=== PATIENT | female | born 1970 | race American Indian/Alaskan Native ===

== ENCOUNTER 2018-10-01 07:15 | Inpatient (IN) | payer SELFPAY ==
[2018-10-01 07:41] LABS: Basophils # (Auto) 0.1 K/mm3 (0.0-0.1); Basophils % (Auto) 1.3 % (0.0-1.8); Eosinophils # (Auto) 0.2 K/mm3 (0.0-0.4); Eosinophils % (Auto) 3.9 % (0.0-4.3); Hematocrit 46.8 % (30.3-42.9); Hemoglobin 15.5 gm/dl (10.1-14.3); Lymphocytes # (Auto) 1.5 K/mm3 (1.2-5.4); Lymphocytes % (Auto) 28.2 % (13.4-35.0); Mean Corpuscular HGB Conc 33 % (30-34); Mean Corpuscular Volume 88 fl (79-97); Monocytes # (Auto) 0.3 K/mm3 (0.0-0.8); Monocytes % (Auto) 6.3 % (0.0-7.3); Platelet Count 163 K/mm3 (140-440); Red Blood Count 5.32 M/mm3 (3.65-5.03); Red Cell Distribution Width 12.7 % (13.2-15.2)
[2018-10-01 07:59] LABS: BUN/Creatinine Ratio 9; Blood Urea Nitrogen 8 mg/dL (7-17); Calcium 9.3 mg/dL (8.4-10.2); Hemolysis Index 10
[2018-10-01] MEDS ORDERED: NACL 0.9% 500 ML 500 ML IV ONE (08:59)
[2018-10-01] MEDS ORDERED: ANTIVERT PO ONE (08:59)
[2018-10-01] MEDS ORDERED: REGLAN IV ONE (08:59)
--- NOTE | 2018-10-01 09:00 | Emergency Department Report ---
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 The patient is not known to this provider previously. She reports that she is not . The patient presents to the emergency room today with complaint of nontraumatic binocular blurry vision, ass ociated symptom of dizziness, and generalized weakness. The patient is a poor historian. The patient's history is erratic, and inconsistent. The patient endorses that her dizziness has been going on for a day or 2. It is associated with an occipital headache. She indicates the dizziness feels unsteady and spinning in nature. The binocular blurry vision started this morning. There is nausea. There is no vomiting. There is no chest pain. There is no abdominal pain. No irritative or obstructive urinary symptoms. The patient initially stated that she's not had symptoms like this before. She then indicated that she had a headache and blurry vision like this approximately 3 weeks ago. Apparently, the patient had some involuntary shaking. This apparently happened this morning. The patient feels warm. She has no fevers that she is aware. -: Gradual, Sudden, days(s), week(s) Location: head Consistency: intermittent Improves with: none Worsens with: none - Related Data Allergies Allergy/AdvReac Type Severity Reaction Status Date / Time No Known Allergies Allergy Unverified 10/01/18 07:27 ED Review of Systems ROS: Stated complaint: DIZZY/BLURRY VISION Other details as noted in HPI Constitutional: malaise Eyes: vision change. denies: eye discharge ENT: denies: throat pain Respiratory: denies: cough Cardiovascular: denies: chest pain Gastrointestinal: denies: abdominal pain Genitourinary: denies: urgency Musculoskeletal: denies: back pain Skin: denies: lesions Neurological: headache, weakness, abnormal gait, vertigo Psychiatric: anxiety ED Past Medical Hx - Past Medical History Previous Medical History?: No - Surgical History Past Surgical History?: No - Social History Smoking Status: Current Every Day Smoker Substance Use Type: None ED Physical Exam - General Limitations: Language Barrier General appearance: alert, in no apparent distress - Head Head exam: Present: atraumatic, normocephalic - Eye Eye exam: Present: normal appearance, PERRL, EOMI, other (visual acuity intact to finger counting, color perception bilaterally). Absent: nystagmus - ENT ENT exam: Present: normal exam, normal orophraynx, mucous membranes moist, TM's normal bilaterally, normal external ear exam - Neck Neck exam: Present: normal inspection, full ROM. Absent: tenderness, m eningismus - Respiratory Respiratory exam: Present: normal lung sounds bilaterally. Absent: respiratory distress - Cardiovascular Cardiovascular Exam: Present: regular rate, normal rhythm, normal heart sounds. Absent: bradycardia, tachycardia, irregular rhythm, systolic murmur, diastolic murmur, rubs, gallop - GI/Abdominal GI/Abdominal exam: Present: soft. Absent: distended, tenderness, guarding, rebound, rigid, pulsatile mass - Extremities Exam Extremities exam: Present: normal inspection, full ROM, other (2+ pulses noted in the bilateral upper, lower extremities. Compartments soft. No long bony tenderness. The pelvis is stable.). Absent: pedal edema, joint swelling, calf tenderness - Back Exam Back exam: Present: normal inspection, full ROM. Absent: tenderness, CVA tenderness (R), paraspinal tenderness, vertebral tenderness - Neurological Exam Neurological exam: Present: alert, abnormal gait (the patient walks with a broad-based gait. The patient has difficulty performing a tandem gait. The patient appears to have a positive Romberg examination), other (Extraocular movements intact. Tongue midline. No facial droop. Facial sensation intact to light touch in the V1, V2, V3 distribution bilaterally. 5 and 5 strength in 4 extremities.. Sensation is intact to light touch in 4 extremities.). Absent: motor sensory deficit - Psychiatric Psychiatric exam: Present: anxious - Skin Skin exam: Present: warm, dry, intact, normal color. Absent: rash ED Course Vital Signs 10/01/18 10/01/18 10/01/18 07:23 07:54 08:00 Temperature 97.9 F Pulse Rate 68 69 72 Respiratory 18 13 19 Rate Blood Pressure 155/88 128/69 O2 Sat by Pulse 99 99 Oximetry - Reevaluation(s) Reevaluation #1: 10/01/18 09:32 Differential diagnosis, including but not limited to: Complex migraine, stroke, transient ischemic attack, neurocysticercosis, multiple sclerosis Assessment and plan: 48-year-old female who describes binocular blurry vision, dizziness, feeling off balance. Reports dizziness present for at least 1-2 days. Reports blurry vision started this morning at 6:00 in the morning. The patient has an NIH score of 0. Her history is erratic. It is mild pain at the patient is not a TPA candidate. She is found to have abnormal physical exam findings, including a broad-based gait, inability to perform tandem examination/gait, and a probable positive Romberg examination. CT scan of the brain, CT angiogram of the head and neck have been ordered. The patient is currently being interviewed by stroke neurologist, Dr. Virgie Fernandez. We anticipate the patient will be admitted for further evaluation and workup, if no large vessel occlusion is noted on CT scan. Reevaluation #2: 10/01/18 09:37 CT scan of the brain is negative. CT angiogram of the head is negative. Reevaluation #3: 10/01/18 09:58 CT angiogram neck negative. Dr. Praful Gandhi to admit ED Medical Decision Making - Lab Data Result diagrams: 10/01/18 07:32 10/01/18 07:32 Vital Signs 10/01/18 10/01/18 10/01/18 07:23 07:54 08:00 Temperature 97.9 F Pulse Rate 68 69 72 Respiratory 18 13 19 Rate Blood Pressure 155/88 128/69 O2 Sat by Pulse 99 99 Oximetry Lab Results 10/01/18 10/01/18 Range/Units 07:32 07:32 WBC 5.4 (4.5-11.0) K/mm3 RBC 5.32 H (3.65-5.03) M/mm3 Hgb 15.5 H (10.1-14.3) gm/dl Hct 46.8 H (30.3-42.9) % MCV 88 (79-97) fl MCH 29 (28-32) pg MCHC 33 (30-34) % RDW 12.7 L (13.2-15.2) % Plt Count 163 (140-440) K/mm3 Lymph % (Auto) 28.2 (13.4-35.0) % [place] % (Auto) 6.3 (0.0-7.3) % Eos % (Auto) 3.9 (0.0-4.3) % Baso % (Auto) 1.3 (0.0-1.8) % Lymph # 1.5 (1.2-5.4) K/mm3 [place] # 0.3 (0.0-0.8) K/mm3 Eos # 0.2 (0.0-0.4) K/mm3 Baso # 0.1 (0.0-0.1) K/mm3 Seg Neutrophils % 60.3 (40.0-70.0) % Seg Neutrophils # 3.2 (1.8-7.7) K/mm3 Sodium 138 (137-145) mmol/L Potassium 4.1 (3.6-5.0) mmol/L Chloride 104.7 (98-107) mmol/L Carbon Dioxide 23 (22-30) mmol/L Anion Gap 14 mmol/L BUN 8 (7-17) mg/dL Creatinine 0.9 (0.7-1.2) mg/dL Estimated GFR > 60 ml/min BUN/Creatinine Ratio 9 % Glucose 104 H (65-100) mg/dL Calcium 9.3 (8.4-10.2) mg/dL - EKG Data -: EKG Interpreted by Me EKG shows normal: sinus rhythm, axis Rate: normal - EKG Data When compared to previous EKG there are: previous EKG unavailable 10/01/18 09:32 This is a normal sinus rhythm, 65 bpm, normal axis, normal intervals, poor R wave progression, not consistent with ST elevation myocardial infarction. - Radiology Data Radiology results: pending, image reviewed Critical care attestation.: If time is entered above; I have spent that time in minutes in the direct care of this critically ill patient, excluding procedure time. ED Disposition Clinical Impression: Abnormal gait, Visual disturbance Disposition: OP ADMIT IP TO THIS HOSP Is pt being admited?: Yes Condition: Good Referrals: SHIRA CONKLIN MD [Primary Care Provider] - 3-5 Days - Assessment Assessment Interval: Baseline - Level of Consciousness 1a. Level of Consciousness: alert/keenly responsive - LOC Questions 1b. LOC Questions: answers both correctly - LOC Command 1c. LOC Commands: performs tasks correctly - Best Gaze 2. Best Gaze: normal - Visual 3. Visual: no visual loss - Facial Palsy 4. Facial Palsy: normal symmetrical movement - Motor Arm 5a. Motor Arm Left: no drift 5b. Motor Arm Right: no drift - Motor Leg 6a. Motor Leg Left: no drift 6b. Motor Leg Right: no drift - Limb Ataxia 7. Limb Ataxia: absent - Sensory 8. Sensory: normal - Best Language 9. Best Language: no aphasia - Dysarthria 10. Dysarthria: normal - Extinction and Inattention 11. Extinction/Inattention: no abnormality - Scoring Total Score: 0 Stroke Severity: No Stroke Symptoms
--- NOTE | 2018-10-01 09:38 | Cat Scan Report ---
CTA HEAD: HISTORY: Headache, stroke. TECHNIQUE: Helical CT images after IV contrast with 0.625mm reformations. Sagittal and coronal reformats. Rotational MIP images. 3D volume rendering technique. FINDINGS: The arterial structures of the anterior and posterior circulations are patent throughout. No evidence for stenosis, occlusion or aneurysm. IMPRESSION: Unremarkable CTA head.
[2018-10-01] MEDS ORDERED: BABY ASPIRIN PO ONE (09:39)
--- NOTE | 2018-10-01 09:40 | Cat Scan Report ---
CT HEAD WITHOUT CONTRAST: HISTORY: Blurred vision, headache, CVA. TECHNIQUE: Sequential 2.5mm CT images. COMPARISON: none. FINDINGS: Cerebral Parenchyma: Within normal limits. Cerebellum: Within normal limits. Brainstem: Within normal limits. Ventricles: Normal. Sella: Normal. Extra-axial spaces: Normal. Basal Cisterns: Normal. Intracranial Hemorrhage: None. Midline Shift: None. Calvarium: Normal. Sinuses: Normal. Mastoid Air Cells: Normal. Visualized Orbits: Normal. IMPRESSION: Cranial CT scan within normal limits. These findings were discussed with Dr. Hardin in the emergency department at 0930 hours.
--- NOTE | 2018-10-01 09:41 | Cat Scan Report ---
CTA NECK: HISTORY: Headache, stroke. TECHNIQUE: Helical CT following IV contrast. Sagittal and coronal reformatted images. 3D volume rendering technique. Stenosis was calculated using NASCET criteria with the distal ICA being stented diameter of. FINDINGS: The visualized aortic arch, innominate artery and proximal bilateral subclavian arteries are widely patent with less than 20% stenosis. Within the right carotid system: Less than 20% stenosis. Within the left carotid system: Less than 20% stenosis. The cervical vertebral arteries are patent with less than 20% stenosis. IMPRESSION: Normal CTA of the neck.
[2018-10-01] MEDS ORDERED: PLAVIX ONE (11:06)
--- NOTE | 2018-10-01 12:13 | History and Physical Report ---
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 Today as the febrile, the patient was driving had increased dizziness And unable to drive. Ms Virgie[patient's friend and room mate] reports that patient has been having some headache and blurring vision for the last 3 weeks. Also noticed some slurring of speech which lasted 4- 5 minutes. Patient denies any chest pain or shortness of breath, denies nausea vomiting or abdominal pain Intermittent headache and some shaking movements Symptoms became worse this morning, initial workup with CT head, CTA neck, CTA head in the ER Did not reveal any acute abnormalities,Patient is not a candidate for TPA Time of my evaluation patient has mild jerking movements intermittent Past History Past Medical History: No medical history Past Surgical History: No surgical history Social history: lives with family, smoking, full code. denies: alcohol abuse, prescription drug abuse Family history: no significant family history Medications and Allergies Allergies Allergy/AdvReac Type Severity Reaction Status Date / Time aspirin Allergy Anaphylaxis Verified 10/01/18 10:34 Home Medications Medication Instructions Recorded Confirmed Last Taken Type Butalb/Acetamin/Caff 50-325-40 1 tab PO Q4H PRN #14 tablet 10/03/18 Unknown Rx [Fioricet 50-325-40] Meclizine [Antivert] 12.5 mg PO Q12H PRN #14 tablet 10/03/18 Unknown Rx Active Meds: Active Medications Clopidogrel Bisulfate (Plavix) 75 mg PO QDAY SNOW Review of Systems Constitutional: no weight loss, no weight gain Eyes: bilateral: blurred vision (intermittent) Ears, nose, mouth and throat: no nasal congestion, no nasal discharge Cardiovascular: no chest pain, no palpitations, no lightheadedness Respiratory: no cough, no shortness of breath Gastrointestinal: no abdominal pain, no nausea, no vomiting Genitourinary Female: no dyspareunia, no dysmenorrhea Musculoskeletal: other (jerking movements), no myalgias, no arthritis Integumentary: no rash, no lesions Neurological: tremors, headaches, change in speech, no seizures, no syncope Psychiatric: no anxiety, no depression Endocrine: no cold intolerance, no heat intolerance Hematologic/Lymphatic: no easy bruising, no easy bleeding Allergic/Immunologic: no urticaria, no allergic rhinitis Exam - Constitutional Vitals: Temp Pulse Resp BP Pulse Ox 97.9 F 72 19 128/69 99 10/01/18 07:23 10/01/18 08:00 10/01/18 09:00 10/01/18 08:00 10/01/18 09:00 General appearance: Present: no acute distress, well-nourished - EENT Eyes: Present: PERRL, EOM intact - Neck Neck: Present: supple, normal ROM - Respiratory Respiratory effort: normal Respiratory: bilateral: diminished, negative: rales, rhonchi, wheezing - Cardiovascular Rhythm: regular Heart Sounds: Present: S1 & S2 - Extremities Extremities: no ischemia, No edema - Abdominal General gastrointestinal: Present: soft, non-tender, non-distended, normal bowel sounds - Integumentary Integumentary: Present: clear, warm - Musculoskeletal Musculoskeletal: strength equal bilaterally, generalized weakness - Psychiatric Psychiatric: appropriate mood/affect, cooperative - Neurologic Neurologic: CNII-XII intact, moves all extremities Results - Labs CBC & Chem 7: 10/01/18 07:32 10/01/18 07:32 Labs: Abnormal lab results 10/01/18 10/01/18 Range/Units 07:32 07:32 RBC 5.32 H (3.65-5.03) M/mm3 Hgb 15.5 H (10.1-14.3) gm/dl Hct 46.8 H (30.3-42.9) % RDW 12.7 L (13.2-15.2) % Glucose 104 H (65-100) mg/dL Assessment and Plan --Possible Acute CVA: Not a candidate for TPA Patient is allergic to aspirin, start Plavix and statin Neuro checks, CTA head CT head and CTA neck Findings noted, MRI, echocardiogram, carotid Doppler Swallow screen, cardiac diabetes swallow screen is normal Physical therapy, occupational therapy, speech therapy Neurology consult --Ongoing tobacco use; smoking cessation Advised nicotine patch as needed --DVT prophylaxis; Lovenox Monitor closely and adjust the management as needed Follow-up neuro workup, neurology evaluation Plan of care discussed with the patient through a bilingual friend Miss Garvin Juan J [[phone]]
[2018-10-01] MEDS ORDERED: SODIUM CHLORIDE FLUSH SYRINGE 10 ML IV PRN (12:20)
[2018-10-01] MEDS: PLAVIX PO SCH (12:49)
--- NOTE | 2018-10-01 15:03 | Magnetic Resonance Report ---
MRI OF THE BRAIN WITHOUT CONTRAST: HISTORY: Neurological symptoms, CVA, bilateral upper extremity weakness. PROCEDURE: Multiplanar, multisequence MR imaging of the brain without IV contrast was performed. FINDINGS: CT head performed earlier today was reviewed. The brain parenchyma signal intensity and its spence white interface are within normal limits on all sequences. No evidence for acute ischemia, hemorrhage or mass. No chronic infarct or extra-axial fluid collection. The midline structures are central. The basal cisterns are patent. Normal ventricular size. The orbital cavities and sella turcica demonstrate no abnormality. The visualized paranasal sinuses and mastoid air cells are well aerated. IMPRESSION: Unremarkable non-enhanced MRI of the brain.
--- NOTE | 2018-10-01 15:22 | Vascular Lab Report ---
PROCEDURE: VL CAROTID DUPLEX BILAT HISTORY: neuro symptoms/CVA FINDINGS: Real-time ultrasound of the cervical arterial vasculature was performed using grayscale and color Doppler images. On the right, peak systolic velocity in the common carotid artery was 116 cm/s. In the internal carot id was 111 cm/s and in the external carotid 104 cm/s. Flow in the vertebral artery was antegrade at 5 4 cm/s. The ratio of flow of the internal carotid to the common carotid was 0.96 which is within norm al limits 0.81 which is within normal limits On the left, peak systolic velocity in the common carotid artery was 123 cm/s. In the internal caroti d it was 100 cm/s and in the external carotid 98 cm/s. Flow in the vertebral artery was antegrade at 60 cm/s IMPRESSION: No stenosis of greater than 50% is seen in the cervical arterial vasculature This document is electronically signed by Te Ramos MD., Oct 01 2018 03:20:01 PM ET
[2018-10-01] MEDS: NACL 0.9% 1000 ML 1,000 ML IV SCH (18:07)
[2018-10-01] MEDS ORDERED: AMBIEN PO PRN (20:45)
--- NOTE | 2018-10-01 23:30 | Consultation ---
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- at 0600 woek up with dizziness and binocular BV, never happened before but then also stated similar symptoms 3 weeks ago, she is ataxic while walking, unable to tandem; + Rombergs test; per friend here she states that she has lumps in her scalp that keep coming and going and swollen eyes in the morning and has been complaining of her right side being numb on/off for about 3 weeks, wakes up with blurry vision and dizzy, she has to lay back down, will call friend to come help her- has been going on for 3 weeks- no chiropractic use, no surgeries recently, no accidents, no medications or supplements; she doesnt get up during the day- she missed work yesterday because she couldnt get up; 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 She feels hot inside but no fever. She gets flushed and hot flashes. metrics: date of consult 10/01/18 [place] 3 weeks ago [id number] TS called [id number] TS connectd [id number] NIHSS [id number] Past History Past Medical History: No medical history Past Surgical History: No surgical history Social history: lives with family, smoking, full code. denies: alcohol abuse, prescription drug abuse Family history: no significant family history Medications and Allergies Allergies Allergy/AdvReac Type Severity Reaction Status Date / Time aspirin Allergy Anaphylaxis Verified 10/01/18 10:34 Home Medications Medication Instructions Recorded Confirmed Last Taken Type No Known Home Medications [No 10/01/18 10/01/18 Unknown History Reported Home Medications] Active Meds: Active Medications Atorvastatin Calcium (Lipitor) 40 mg PO QHS [facility] Last Admin: 10/01/18 21:20 Dose: 40 mg Documented by: Clopidogrel Bisulfate (Plavix) 75 mg PO QDAY [facility] Last Admin: 10/01/18 12:49 Dose: 75 mg Documented by: Sodium Chloride (Nacl 0.9% 1000 Ml) 1,000 mls @ 75 mls/hr IV DIRECT SNOW Last Admin: 10/01/18 18:07 Dose: 75 mls/hr Documented by: Sodium Chloride (Sodium Chloride Flush Syringe 10 Ml) 10 ml IV PRN PRN PRN Reason: LINE FLUSH Last Admin: 10/01/18 21:20 Dose: 10 ml Documented by: Zolpidem Tartrate (Ambien) 5 mg PO QHS PRN PRN Reason: Sleep Physical Examination - Vital Signs Vital Signs: Vital Signs Temp Pulse Resp BP Pulse Ox 97.9 F 68 18 155/88 99 10/01/18 07:23 10/01/18 07:23 10/01/18 07:23 10/01/18 07:23 10/01/18 07:23 - Level of Consciousness 1a. Level of Consciousness: alert/keenly responsive - LOC Questions 1b. LOC Questions: answers both correctly - LOC Command 1c. LOC Commands: performs tasks correctly - Best Gaze 2. Best Gaze: normal - Visual 3. Visual: no visual loss - Facial Palsy 4. Facial Palsy: normal symmetrical movement - Motor Arm 5a. Motor Arm Left: no drift 5b. Motor Arm Right: no drift - Motor Leg 6a. Motor Leg Left: no drift 6b. Motor Leg Right: no drift - Limb Ataxia 7. Limb Ataxia: absent - Sensory 8. Sensory: normal - Best Language 9. Best Language: no aphasia - Dysarthria 10. Dysarthria: normal - Extinction and Inattention 11. Extinction/Inattention: no abnormality - Scoring Total Score: 0 Stroke Severity: No Stroke Symptoms Results - Laboratory Findings CBC and BMP: 10/01/18 07:32 10/01/18 07:32 Abnormal Lab Findings: Abnormal Labs 10/01/18 10/01/18 07:32 07:32 RBC 5.32 H Hgb 15.5 H Hct 46.8 H RDW 12.7 L Glucose 104 H Assessment and Plan [facility] Impression: r/o stroke vs other entity ie: demyelination Recommendations: no tpa given LKN not an LVO MRI brain to r/o stroke or demyelination neurology consult aspirin now further w/u pending imaging results Virgie Fernnadez MD [facility] d/w ed doc Medical Decision Making: - Extensive number of diagnosis or management options are considered above. - Extensive amount of complex data reviewed. - High risk of complication and/or morbidity or mortality are associated with differential diagnostic considerations above. - There may be uncertain outcome and increased probability of prolonged functional impairment or high probability of severe prolonged functional impairment associated with some of these differential diagnosis. Medical Data Reviewed: 1.Data reviewed include clinical labs, radiology, Medical Tests; 2.Tests results discussed w/performing or interpreting physician; 3.Obtaining/reviewing old medical records; 4.Obtaining case history from another source; 5.Independent review of image, tracing or specimen. Patient was informed the Neurology Consult would happen via telehealth (remote video) and consented to receiving care in this manner.
[2018-10-02 05:47] LABS: Chol/HDL Ratio 3.94 %
[2018-10-02] MEDS ORDERED: ASPIRIN PO SCH (10:00)
[2018-10-02] MEDS: PLAVIX PO SCH (10:05)
[2018-10-02] MEDS: NACL 0.9% 1000 ML 1,000 ML IV SCH (10:06)
[2018-10-02 10:56] LABS: Amphetamine Screen,Urine PRESUMPTIVE NEGATIVE; Benzodiazepines Screen,Urine PRESUMPTIVE NEGATIVE; Cannabinoid Screen,Urine PRESUMPTIVE NEGATIVE; Cocaine Screen,Urine PRESUMPTIVE NEGATIVE; Methadone Screen,Urine PRESUMPTIVE NEGATIVE; Opiate Screen,Urine PRESUMPTIVE NEGATIVE
--- NOTE | 2018-10-02 14:46 | Progress Note ---
Assessment and Plan --Possible Acute CVA: Ruled out Symptom likely due to seizure?? 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 She is admitted with a stroke protocol Radiological data: Head CT/CTA Next CTA Brain MRI Carotid Doppler Echocardiogram Hospitalist Physical exam: GENERAL: well-developed and well-nourished female lying on bed appeared to be in no discomfort. HEENT: Normocephalic. Atraumatic. No conjunctival congestion or icterus. Patient has moist mucous membranes. NECK: Supple. Trachea midline. CHEST/LUNGS: Clear to auscultated bilaterally, breathing nonlabored. No wheezes crackles or rhonchi. HEART/CARDIOVASCULAR: Regular in rate and rhythm. S1 and S2 positive. ABDOMEN: Abdomen is soft, nontender. Patient has normal bowel sounds. SKIN: There is no rash. Warm and dry. NEURO: No focal motor deficit. Follows command. MUSCULOSKELETAL: No joint effusion or tenderness. EXTRIMITY: No edema, no cyanosis or clubbing. PSYCH: Cooperative. Subjective Date of service: 10/02/18 Interval history: Patient seen and examined. Medical records and medication list reviewed. No acute event overnight noted by the RN. Patient denies any chest pain or difficulty breathing. Patient is tolerating diet. Has been cooperative with the physical therapy States that she has history of migraine but not been taking any medications for many years and remained asymptomatic Also stated that she had similar episodes multiple times in the last couple months Discussed plan of care at bedside with patient with a street worker at the bedside. Objective - Constitutional Vitals: Vital Signs - 12hr 10/02/18 10/02/18 10/02/18 03:40 06:13 07:29 Temperature 98.0 F 98.5 F Pulse Rate 70 76 Respiratory 15 18 Rate Blood Pressure 106/66 113/61 O2 Sat by Pulse 95 Oximetry 10/02/18 13:27 Temperature Pulse Rate Respiratory Rate Blood Pressure O2 Sat by Pulse 99 Oximetry - Labs CBC & Chem 7: 10/01/18 07:32 10/01/18 07:32 Labs: Abnormal lab results 10/02/18 Range/Units 04:36 HDL Cholesterol 36 L (40-59) mg/dL
--- NOTE | 2018-10-03 08:24 | Progress Note ---
Subjective Date of service: 10/03/18 Interval history: went over the imaging studies and no evidence of stroke to explain dizzy and weak state the glucose is basically normal the labs reviewed will go over imaging studies with radiology and make further comments agree with medical therapy instituted ED note reviewed as well as part of comprehensive assessment Thanks Objective - Vital Sign Vital Signs - 12hr 10/02/18 10/02/18 10/02/18 20:30 20:57 22:00 Temperature 98.4 F Pulse Rate 63 65 Respiratory 20 Rate Blood Pressure 113/60 O2 Sat by Pulse 98 98 Oximetry 10/03/18 10/03/18 00:11 05:13 Temperature 98.2 F 98.1 F Pulse Rate 63 66 Respiratory 20 20 Rate Blood Pressure 109/52 105/63 O2 Sat by Pulse 98 96 Oximetry - Laboratory Findings CBC and BMP: 10/01/18 07:32 10/01/18 07:32 Abnormal Lab Findings: Abnormal Labs 10/01/18 10/01/18 10/02/18 07:32 07:32 04:36 RBC 5.32 H Hgb 15.5 H Hct 46.8 H RDW 12.7 L Glucose 104 H HDL Cholesterol 36 L
[2018-10-03 08:39] VITALS: BP 115/67
[2018-10-03] MEDS ORDERED: ANTIVERT PO PRN (09:47)
[2018-10-03] MEDS ORDERED: FIORICET PO PRN (09:47)
[2018-10-03] MEDS: PLAVIX PO SCH (10:18)
--- NOTE | 2018-10-03 12:23 | Discharge Summary ---
Providers - Providers Date of Admission: 10/02/18 10:56 Date of discharge: 10/03/18 Attending physician: MAYANK KABA 10/01/18 08:59 Consult to Physician [CONS] Urgent Comment: Consulting Provider: ELISA BELLAMY Physician Instructions: Reason For Exam: cva vs complex migraine 10/01/18 12:20 Occupational Therapy Evaluate and Treat [CONS] Routine Comment: Reason For Exam: Neuro deficits Physical Therapy Evaluation and Treat [CONS] Routine Comment: Reason For Exam: Neuro deficits 10/01/18 20:43 Consult to Physician [CONS] Routine Comment: Consulting Provider: LUIS A OLIVARES Physician Instructions: Reason For Exam: Neuro symptoms/CVA/TIA [facility] Condition: Good Hospital course: Brief History: 48-year-old female patient with no significant past medical history, 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 She was admitted with a stroke protocol. Her stroke workup with CT head, CTA head and neck, brain MRI carotid Doppler and 2- D echo was unremarkable. Ordered EEG for possible seizure. Neurology was consulted. No further seizure-like activity noted. Patient instructed to follow-up with the neurologist outpatient. Patient was discharged home in stable condition. Radiological data: Head CT/CTA Neck CTA Brain MRI Carotid Doppler Echocardiogram Discharge diagnosis and management: --Possible Acute CVA: Ruled out Symptom likely due to seizure?? Possible complex migraine Normal Findings noted on MRI, echocardiogram, carotid Doppler swallow screen is normal Cleared by Physical therapy Ordered EEG and consulted neurology Patient will do further follow-up with the neurology outpatient Patient was discharged with meclizine as needed --Ongoing tobacco use; smoking cessation Advised nicotine patch as needed --DVT prophylaxis; SCD Hospitalist Physical exam: GENERAL: well-developed and well-nourished female lying on bed appeared to be in no discomfort. HEENT: Normocephalic. Atraumatic. No conjunctival congestion or icterus. Patient has moist mucous membranes. NECK: Supple. Trachea midline. CHEST/LUNGS: Clear to auscultated bilaterally, breathing nonlabored. No wheezes crackles or rhonchi. HEART/CARDIOVASCULAR: Regular in rate and rhythm. S1 and S2 positive. ABDOMEN: Abdomen is soft, nontender. Patient has normal bowel sounds. SKIN: There is no rash. Warm and dry. NEURO: No focal motor deficit. Follows command. MUSCULOSKELETAL: No joint effusion or tenderness. EXTRIMITY: No edema, no cyanosis or clubbing. PSYCH: Cooperative. Disposition: DC-01 TO HOME OR SELFCARE Time spent for discharge: 34 minutes Core Measure Documentation - Palliative Care Palliative Care/ Comfort Measures: Not Applicable - Core Measures Any of the following diagnoses?: none Exam - Constitutional Vitals: Temp Pulse Resp BP Pulse Ox 98.3 F 74 18 115/67 95 10/03/18 08:37 10/03/18 08:37 10/03/18 08:37 10/03/18 08:37 10/03/18 08:37 Plan Activity: advance as tolerated Weight Bearing Status: Weight Bear as Tolerated Diet: low fat, low salt Follow up with: OANH [facility] MD SALOMÓN [Primary Care Provider] - 3-5 Days LUIS A OLIVARES MD [Staff Physician] - 7 Days Prescriptions: Meclizine [Antivert] 12.5 mg PO Q12H PRN #14 tablet PRN Reason: Vertigo Butalb/Acetamin/Caff 50-325-40 [Fioricet 50-325-40] 1 tab PO Q4H PRN #14 tablet PRN Reason: Headache
--- NOTE | 2018-10-03 13:32 | Progress Note ---
Subjective Date of service: 10/03/18 Interval history: spoke to family will arrange for my incident response lead to see her on offie visit she may go suspect migraine Objective - Vital Sign Vital Signs - 12hr 10/03/18 10/03/18 10/03/18 05:13 08:37 10:00 Temperature 98.1 F 98.3 F Pulse Rate 66 74 Respiratory 20 18 Rate Blood Pressure 105/63 115/67 O2 Sat by Pulse 96 95 99 Oximetry - Laboratory Findings CBC and BMP: 10/01/18 07:32 10/01/18 07:32 Abnormal Lab Findings: Abnormal Labs 10/01/18 10/01/18 10/02/18 07:32 07:32 04:36 RBC 5.32 H Hgb 15.5 H Hct 46.8 H RDW 12.7 L Glucose 104 H HDL Cholesterol 36 L
== END 2018-10-03 16:35 | disposition home or self-care (01) | DRG 103 ==
LOC: ED 07:15 → 4A 09:58 → OBSVTOIN 10-02 10:56
PROVIDERS: ADMIT Internal Medicine; ATTEND Internal Medicine
DX: G43.809 Other migraine, not intractable, without status migrainosus (principal); R26.9 Unspecified abnormalities of gait and mobility; H53.9 Unspecified visual disturbance; F17.200 Nicotine dependence, unspecified, uncomplicated; Z71.6 Tobacco abuse counseling; Z88.6 Allergy status to analgesic agent; Z79.899 Other long term (current) drug therapy
CPT/HCPCS: 36415; 70450; 70496; 70498; 70551; 80048; 80061; 80307; 82550; 83036; 83735; 84443; 85025; 93005; 93010; 93306; 93880; 96374; 99285; 99406; G0378; A9270-GY; J2765; J7030; J7040; Q9967